=== PATIENT | female | born 1990 | race American Indian/Alaskan Native ===

== ENCOUNTER 2018-11-13 20:47 | Emergency (ER) | payer OTHER, BC ==
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
[2018-11-13 22:05] VITALS: BP 126/87
[2018-11-13 22:14] LABS: HCG Qualitative,Urine Negative (Negative)
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
--- NOTE | 2018-11-13 23:12 | XRay Report ---
PROCEDURE: Lumbar spine. TECHNIQUE: 3 views. HISTORY: back pain COMPARISONS: None. FINDINGS: The lumbar vertebrae have normal height and alignment. There are no fractures. There is no spondyloli sthesis. The disc spaces are well-maintained. The sacrum and sacroiliac joints appear normal. IMPRESSION: Normal study. This document is electronically signed by Cecilio Braxton MD., November 13 2018 11:10:49 PM ET
--- NOTE | 2018-11-13 23:53 | XRay Report ---
PROCEDURE: XR SPINE THORACIC 2V TECHNIQUE: Thoracic spine 2 views HISTORY: mid back COMPARISONS: FINDINGS: Vertebral bodies are normal in height and alignment. The disc spaces are within normal limits. 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 Paravertebral soft tissues are unremarkable. IMPRESSION: Negative no acute abnormality seen. This document is electronically signed by Abraham Spann MD., November 13 2018 11:51:06 PM ET
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
== END 2018-11-14 03:05 | disposition home or self-care (01) ==
LOC: ED 20:47
DX: M54.2 Cervicalgia (principal); M25.512 Pain in left shoulder; E11.9 Type 2 diabetes mellitus without complications; Z79.899 Other long term (current) drug therapy; Z88.6 Allergy status to analgesic agent; V59.40XA Driver of pick-up truck or van injured in collision with unspecified motor vehicles in traffic accident, initial encounter; Y93.89 Activity, other specified; Y92.488 Other paved roadways as the place of occurrence of the external cause; Y99.8 Other external cause status
CPT/HCPCS: 72070; 72100; 81025; 99284